=== PATIENT | female | born 1955 | race Hispanic/Latino ===

== ENCOUNTER 2023-03-14 19:50 | Inpatient (IN) | payer MEDICARE, OTHER ==
[~2023-03-14] VITALS: Ht 170.2 cm; Wt 77.1 kg
[~2023-03-14 19:50] MED LIST: DEXAMETHASONE SOD PHOS INJ 4 MG/ML SDV ONE; EPHEDRINE SULFATE INJ 50 MG/ML VIAL ONE; KETOROLAC TROMETHAMINE 30 MG/ML VIAL ONE; LIDOCAINE HCL 2% LOCAL INJ 5 ML SDV VIAL INJ ONE; ONDANSETRON HCL INJ 2MG/ML 2ML 2 MG/ML VIAL ONE; POVIDONE IODINE 0.05% 0.05 % ML PO ONE; PROPOFOL IV EMULSION 10 MG/ML 20 ML VIAL ONE; SEVOFLURANE INHAL SOLN 250 ML PEN BTL ONE
[2023-03-14 21:31] LABS: BASOPHILS % 0.3 % (0.0-1.0); EOSINOPHILS % 0.1 % (0.0-6.0); HEMATOCRIT 36.5 % (34.2-44.1); HEMOGLOBIN 12.2 g/dL (12.0-16.0); LYMPHOCYTES # (AUTO) 0.9 (1.0-3.2); LYMPHOCYTES % 9.4 % (18.0-39.1); MEAN CORPUSCULAR HEMOGLOBIN 31.1 pg (28-32); MEAN CORPUSCULAR HGB CONC 33.4 g/dL (31-35); MEAN CORPUSCULAR VOLUME 93.1 fL (81-99); MONOCYTES # (AUTO) 0.4 (0.2-0.8); MONOCYTES % 4.5 % (4.4-11.3); NEUTROPHILS # (AUTO) 7.7 (2.1-6.9); NEUTROPHILS % 85.4 % (38.7-80.0); PLATELET COUNT 189 x10e3/uL (140-360); RED BLOOD COUNT 3.92 x10e6/uL (3.6-5.1); RED CELL DISTRIBUTION WIDTH 13.4 % (11.7-14.4)
[2023-03-14 21:50] LABS: ALBUMIN 3.3 g/dL (3.5-5.0); ALBUMIN/GLOBULIN RATIO 1.1 (0.8-2.0); ANION GAP 12.4 mmol/L (8-16); CALCIUM 8.2 mg/dL (8.4-10.2); CREATININE, SERUM 0.72 mg/dL (0.57-1.11); POTASSIUM 3.4 mmol/L (3.5-5.1)
[2023-03-14 22:09] LABS: BACTERIA,URINE FEW /HPF; CLARITY,URINE CLEAR (CLEAR); COLOR,URINE YELLOW (YELLOW); EPITHELIAL CELLS,URINE FEW /LPF; KETONES,URINE NEGATIVE (NEGATIVE); LEUKOCYTE ESTERASE ,URINE NEGATIVE (NEGATIVE); NITRITE,URINE NEGATIVE (NEGATIVE); PROTEIN,URINE DIPSTICK NEGATIVE (NEGATIVE); RBC,URINE 0-5 /HPF (0-5); URINE UROBILINOGEN 0.2 mg/dL (0.2 - 1); WBC,URINE (MAN) 0-5 /HPF (0-5)
[2023-03-14] MEDS ORDERED: Morphine 4mg INJECTION 4 MG/ML INJ IV PRN (22:30)
[2023-03-14] MEDS ORDERED: SODIUM CHLORIDE 0.9% 1000ML 1,000 ML IV SCH (22:30)
[2023-03-14] MEDS ORDERED: ONDANSETRON HCL INJ 2MG/ML 2ML 2 MG/ML VIAL IV PRN (22:30)
[2023-03-14 23:26] LABS: PARTIAL THROMBOPLASTIN TIME 31.9 seconds (23.8-35.5); PROTHROMBIN TIME 13.7 seconds (11.9-14.5)
[2023-03-15] VITALS (10 sets, daily range): BP systolic 101–152; BP diastolic 68–87; PULSE 70–91; RESP 14–18; TEMP 97.3–98.4; O2SAT 95–99
[2023-03-15] MEDS ORDERED: LIDOCAINE 4% PATCH TP PRN (01:15)
[2023-03-15] MEDS ORDERED: CHLORASEPTIC SPRAY 177 ML BTL MM PRN (01:15)
[2023-03-15] MEDS ORDERED: ALBUTEROL/IPRATROPIUM 3 ML NEB NEB PRN (01:15)
[2023-03-15] MEDS ORDERED: SIMETHICONE 80 MG CHEW PO PRN (01:15)
[2023-03-15] MEDS ORDERED: DEXTROSE 5%/0.9% SOD CHL 1,000 ML IV SCH (01:15)
[2023-03-15] MEDS ORDERED: DEXTROSE 50% SYRINGE 50 ML IV PRN (01:15)
[2023-03-15] MEDS ORDERED: ACETAMINOPHEN 325 MG TAB PO PRN (01:15)
[2023-03-15] MEDS ORDERED: POTASSIUM CHLORIDE 20 MEQ TAB CR PO PRN (01:15)
[2023-03-15] MEDS ORDERED: BENZONATATE 100 MG CAP PO PRN (01:15)
[2023-03-15] MEDS ORDERED: MELATONIN 5 MG TABLET PO PRN (01:15)
[2023-03-15] MEDS ORDERED: DOCUSATE SODIUM 100 MG CAP PO PRN (01:15)
[2023-03-15] MEDS ORDERED: HYDRALAZINE HCL 20 MG/ML VIAL IV PRN (01:15)
[2023-03-15] MEDS ORDERED: DIPHENHYDRAMINE HCL 25 MG CAP PO PRN (01:15)
[2023-03-15 06:26] LABS: BASOPHILS % 0.5 % (0.0-1.0); EOSINOPHILS # (AUTO) 0.1 (0.0-0.4); EOSINOPHILS % 1.6 % (0.0-6.0); HEMATOCRIT 32.4 % (34.2-44.1); HEMOGLOBIN 10.7 g/dL (12.0-16.0); LYMPHOCYTES # (AUTO) 2.2 (1.0-3.2); LYMPHOCYTES % 29.8 % (18.0-39.1); MEAN CORPUSCULAR HEMOGLOBIN 30.9 pg (28-32); MEAN CORPUSCULAR VOLUME 93.6 fL (81-99); MONOCYTES # (AUTO) 0.5 (0.2-0.8); MONOCYTES % 6.3 % (4.4-11.3); NEUTROPHILS # (AUTO) 4.6 (2.1-6.9); NEUTROPHILS % 61.5 % (38.7-80.0); PLATELET COUNT 170 x10e3/uL (140-360); RED BLOOD COUNT 3.46 x10e6/uL (3.6-5.1); RED CELL DISTRIBUTION WIDTH 13.3 % (11.7-14.4)
[2023-03-15] MEDS ORDERED: ACETAMINOPHEN 1000 MG/100 ML 100 ML IV ONE (06:32)
[2023-03-15 06:49] LABS: ALBUMIN 2.7 g/dL (3.5-5.0); ANION GAP 9.4 mmol/L (8-16); CALCIUM 8.2 mg/dL (8.4-10.2); CREATININE, SERUM 0.71 mg/dL (0.57-1.11); POTASSIUM 3.4 mmol/L (3.5-5.1)
[2023-03-15 06:58] LABS: INR 1.02; PROTHROMBIN TIME 13.9 seconds (11.9-14.5)
[2023-03-15 06:59] LABS: PARTIAL THROMBOPLASTIN TIME 36.5 seconds (23.8-35.5)
[2023-03-15] MEDS: PANTOPRAZOLE SOD 40 MG TABEC PO SCH ×2 (07:30→17:09)
[2023-03-15] MEDS ORDERED: BUPIVACAINE HCL 0.5% INJ 30 ML VIAL INJ ONE (10:43)
[2023-03-15] MEDS ORDERED: ONDANSETRON HCL INJ 2MG/ML 2ML 2 MG/ML VIAL IV PRN (11:45)
[2023-03-15] MEDS ORDERED: KETOROLAC TROMETHAMINE 30 MG/ML VIAL IV PRN (11:45)
[2023-03-15] MEDS ORDERED: FENTANYL CITRATE/PF 100MCG/2 ML INJ ONE (13:46)
[2023-03-15] MEDS ORDERED: ENOXAPARIN SOD INJ 40 MG/0.4 ML SYR SC SCH (17:00)
[2023-03-15] MEDS: CEFAZOLIN SODIUM 2 GM in SODIUM CHLORIDE 0.9% 100 ML IV SCH (17:13)
[2023-03-15] MEDS: CELECOXIB 100 MG CAP PO SCH (17:16)
[2023-03-15] MEDS: ENOXAPARIN SOD INJ 40 MG/0.4 ML SYR SC SCH (20:58)
[2023-03-16] VITALS (10 sets, daily range): BP systolic 95–104; BP diastolic 58–74; PULSE 74–86; RESP 16–22; TEMP 97.3–98.9; O2SAT 98–100
[2023-03-16] MEDS: CEFAZOLIN SODIUM 2 GM in SODIUM CHLORIDE 0.9% 100 ML IV SCH ×2 (02:03→09:10)
[2023-03-16 06:22] LABS: BASOPHILS % 0.2 % (0.0-1.0); EOSINOPHILS # (AUTO) 0.1 (0.0-0.4); EOSINOPHILS % 1.1 % (0.0-6.0); HEMATOCRIT 28.8 % (34.2-44.1); HEMOGLOBIN 9.3 g/dL (12.0-16.0); LYMPHOCYTES # (AUTO) 2.2 (1.0-3.2); LYMPHOCYTES % 33.9 % (18.0-39.1); MEAN CORPUSCULAR HEMOGLOBIN 31.1 pg (28-32); MEAN CORPUSCULAR HGB CONC 32.3 g/dL (31-35); MEAN CORPUSCULAR VOLUME 96.3 fL (81-99); MONOCYTES # (AUTO) 0.4 (0.2-0.8); MONOCYTES % 5.9 % (4.4-11.3); NEUTROPHILS # (AUTO) 3.8 (2.1-6.9); NEUTROPHILS % 58.4 % (38.7-80.0); PLATELET COUNT 150 x10e3/uL (140-360); RED BLOOD COUNT 2.99 x10e6/uL (3.6-5.1); RED CELL DISTRIBUTION WIDTH 13.7 % (11.7-14.4)
[2023-03-16 06:54] LABS: ALBUMIN 2.5 g/dL (3.5-5.0); ANION GAP 10.5 mmol/L (8-16); CALCIUM 8.1 mg/dL (8.4-10.2); CREATININE, SERUM 0.82 mg/dL (0.57-1.11); POTASSIUM 3.5 mmol/L (3.5-5.1)
[2023-03-16] MEDS: CELECOXIB 100 MG CAP PO SCH ×2 (09:09→16:28)
[2023-03-16] MEDS: ENOXAPARIN SOD INJ 40 MG/0.4 ML SYR SC SCH (16:28)
[2023-03-17] VITALS (15 sets, daily range): BP systolic 107–143; BP diastolic 63–96; PULSE 62–98; RESP 17–22; TEMP 97–99; O2SAT 96–100
[2023-03-17 06:16] LABS: BASOPHILS # (AUTO) 0.1 (0.0-0.1); BASOPHILS % 1.1 % (0.0-1.0); EOSINOPHILS # (AUTO) 0.1 (0.0-0.4); HEMATOCRIT 25.5 % (34.2-44.1); HEMOGLOBIN 8.2 g/dL (12.0-16.0); LYMPHOCYTES # (AUTO) 2.1 (1.0-3.2); LYMPHOCYTES % 43.8 % (18.0-39.1); MEAN CORPUSCULAR HEMOGLOBIN 31.4 pg (28-32); MEAN CORPUSCULAR HGB CONC 32.2 g/dL (31-35); MEAN CORPUSCULAR VOLUME 97.7 fL (81-99); MONOCYTES # (AUTO) 0.3 (0.2-0.8); MONOCYTES % 7.2 % (4.4-11.3); NEUTROPHILS # (AUTO) 2.1 (2.1-6.9); NEUTROPHILS % 44.7 % (38.7-80.0); PLATELET COUNT 147 x10e3/uL (140-360); RED BLOOD COUNT 2.61 x10e6/uL (3.6-5.1); RED CELL DISTRIBUTION WIDTH 13.7 % (11.7-14.4)
[2023-03-17 06:29] LABS: ALBUMIN 2.4 g/dL (3.5-5.0); ANION GAP 9.6 mmol/L (8-16); CALCIUM 7.9 mg/dL (8.4-10.2); CREATININE, SERUM 0.7 mg/dL (0.57-1.11); POTASSIUM 3.6 mmol/L (3.5-5.1)
[2023-03-17] MEDS: PANTOPRAZOLE SOD 40 MG TABEC PO SCH (09:22)
[2023-03-17] MEDS: CELECOXIB 100 MG CAP PO SCH ×2 (09:22→17:17)
[2023-03-17] MEDS: ENOXAPARIN SOD INJ 40 MG/0.4 ML SYR SC SCH (17:17)
[2023-03-18] VITALS (7 sets, daily range): BP systolic 121–145; BP diastolic 66–88; PULSE 57–82; RESP 18–20; TEMP 98–98.4; O2SAT 96–98
[2023-03-18 06:15] LABS: BASOPHILS # (AUTO) 0.1 (0.0-0.1); EOSINOPHILS # (AUTO) 0.2 (0.0-0.4); EOSINOPHILS % 3.7 % (0.0-6.0); HEMATOCRIT 27.1 % (34.2-44.1); HEMOGLOBIN 8.6 g/dL (12.0-16.0); LYMPHOCYTES # (AUTO) 2.3 (1.0-3.2); LYMPHOCYTES % 47.7 % (18.0-39.1); MEAN CORPUSCULAR HEMOGLOBIN 31.3 pg (28-32); MEAN CORPUSCULAR HGB CONC 31.7 g/dL (31-35); MEAN CORPUSCULAR VOLUME 98.5 fL (81-99); MONOCYTES # (AUTO) 0.4 (0.2-0.8); MONOCYTES % 8.3 % (4.4-11.3); NEUTROPHILS # (AUTO) 1.9 (2.1-6.9); NEUTROPHILS % 38.9 % (38.7-80.0); PLATELET COUNT 170 x10e3/uL (140-360); RED BLOOD COUNT 2.75 x10e6/uL (3.6-5.1); RED CELL DISTRIBUTION WIDTH 13.6 % (11.7-14.4)
[2023-03-18 07:09] LABS: ALBUMIN 2.5 g/dL (3.5-5.0); ALBUMIN/GLOBULIN RATIO 0.9 (0.8-2.0); ANION GAP 9.5 mmol/L (8-16); CALCIUM 8.3 mg/dL (8.4-10.2); CREATININE, SERUM 0.68 mg/dL (0.57-1.11); POTASSIUM 3.5 mmol/L (3.5-5.1)
[2023-03-18] MEDS: PANTOPRAZOLE SOD 40 MG TABEC PO SCH (09:22)
[2023-03-18] MEDS: CELECOXIB 100 MG CAP PO SCH ×2 (09:22→17:41)
[2023-03-18] MEDS ORDERED: ONDANSETRON HCL 4 MG ORAL DISINTEGRATING TAB PO PRN (09:30)
[2023-03-18] MEDS: ENOXAPARIN SOD INJ 40 MG/0.4 ML SYR SC SCH (17:38)
== END 2023-03-18 17:49 | DRG 482 ==
LOC: ER 19:55 → ERHOLD 22:32 → MED/SURG3 23:56
PROVIDERS: ADMIT Internal Medicine; ATTEND Internal Medicine
PROC: 0QS734Z Reposition Left Upper Femur with Internal Fixation Device, Percutaneous Approach (ICD-10-PCS; principal; 2023-03-15 10:45)
DX: S72.012A Unspecified intracapsular fracture of left femur, initial encounter for closed fracture (principal); Y92.129 Unspecified place in nursing home as the place of occurrence of the external cause; M48.00 Spinal stenosis, site unspecified; W18.30XA Fall on same level, unspecified, initial encounter; K76.82 Hepatic encephalopathy; D64.9 Anemia, unspecified; M54.9 Dorsalgia, unspecified; G89.29 Other chronic pain; R63.0 Anorexia; I35.0 Nonrheumatic aortic (valve) stenosis; K76.9 Liver disease, unspecified; G30.9 Alzheimer's disease, unspecified; F02.80 Dementia in other diseases classified elsewhere, unspecified severity, without behavioral disturbance, psychotic disturbance, mood disturbance, and anxiety; F17.200 Nicotine dependence, unspecified, uncomplicated; Z98.84 Bariatric surgery status; Z20.822 Contact with and (suspected) exposure to COVID-19
CPT/HCPCS: 36415; 70450; 71045; 72125; 76000; 80053; 81001; 83605; 85025; 85610; 85730; 86850; 86900; 87040; 87086; 93005; 93306; 94799; 99284; C1713; J0690; J1100; J1650; J1885; J2001; J2405; J7030; J7042; J7050; L8600